=== PATIENT | female | born 1995 | race Caucasian/White ===

== ENCOUNTER 2019-09-24 21:53 | Emergency (ER) | payer OTHER ==
[~2019-09-24] VITALS: Ht 162.6 cm; Wt 54.4 kg
[2019-09-24] MEDS ORDERED: IV NS 0.9% 1,000 ML IV ONE (22:55)
[2019-09-24] MEDS ORDERED: ACETAMINOPHEN 650 MG/SUPP.RECT RC ONE (23:00)
[2019-09-24] MEDS ORDERED: ACETAMINOPHEN 325 MG TABLET ONE (23:19)
[2019-09-24 23:30] LABS: BASOPHILS % (AUTO) 0.2 % (0.0-2.0); HEMATOCRIT 39 % (33-45); HEMOGLOBIN 13.1 g/dL (11.5-14.8); LYMPHOCYTES # (AUTO) 0.6 /CMM (0.8-4.8); LYMPHOCYTES % (AUTO) 6.4 % (20.0-44.0); MEAN CORPUSCULAR HGB CONC 34 g/dl (31.0-36.0); MEAN CORPUSCULAR VOLUME 93 fL (82-100); MONOCYTES # (AUTO) 0.8 /CMM (0.1-1.30); MONOCYTES % (AUTO) 8.9 % (2.0-12.0); NEUTROPHILS # (AUTO) 7.9 /CMM (1.8-8.9); NEUTROPHILS % (AUTO) 84.5 % (43.0-81.0); PLATELET COUNT (AUTO) 173 /CMM (150-450); RED BLOOD CELL COUNT(AUTO) 4.15 MIL/uL (4.0-5.2); WHITE BLOOD COUNT (AUTO) 9.4 K/uL (4.3-11.0)
[2019-09-24] MEDS ORDERED: ACETAMINOPHEN 325 MG TABLET PO ONE (23:30)
--- NOTE | 2019-09-24 23:30 | NUR ---
BIBS FOR C/O H/A AND NAUSEA X 3 DAYS. NOTED W/ TEMP: 102.3 UPON TRIAGE. PT AAOX4, VSS. RR EVEN & UNLABORED. DENIES CP, SOB, DIZZINESS, DIARRHEA, WEAKNESS AT THIS TIME. PT SEEN & EVAL'D BY DR. BATRES. MEDICATED ORDERED, PT IDALIA WELL. WILL CONT TO MONITOR.
[2019-09-24 23:51] LABS: CALCIUM, SERUM 9.3 mg/dL (8.5-10.1); CREATININE 0.8 mg/dL (0.6-1.3); POTASSIUM 3.3 mmol/L (3.5-5.1)
[2019-09-25 00:04] LABS: ALBUMIN 3.7 g/dL (3.4-5.0); BILIRUBIN,TOTAL 0.5 mg/dL (0.2-1.0); TOTAL PROTEIN, SERUM 7.6 g/dL (6.4-8.2)
[2019-09-25 00:18] LABS: C-REACTIVE PROTEIN 19.3 mg/dL (0.0-0.9)
[2019-09-25 00:22] LABS: D-DIMER 0.48 mg/L(FEU (0.17-0.50)
--- NOTE | 2019-09-25 00:25 | NUR ---
PT RESTING IN GURNEY. NO SIGNS OF DISTRESS NOTED. PT VITAL SIGNS STABLE. WILL CONT TO MONITOR PT.
--- NOTE | 2019-09-25 01:31 | NUR ---
PT OK TO DISCHARGE PER DR BATRES. Patient discharged to home in stable condition. Written and verbal after care instructions given. Patient verbalizes understanding of instruction.Patient is awake and alert to self, day, and place. pT ambulatory with a steady gait
[2019-09-25 01:33] VITALS: BP 124/75
== END 2019-09-25 01:34 | disposition home or self-care (01) ==
LOC: ER 21:58
DX: B34.9 Viral infection, unspecified (principal); Z20.828 Contact with and (suspected) exposure to other viral communicable diseases; R50.9 Fever, unspecified
CPT/HCPCS: 36415; 71045; 80053; 82550; 83605; 83615; 84145; 85025; 85378; 85730; 86140; 87040; 99284; C9803; J7030; U0003